=== PATIENT | male | born 1975 | race Caucasian/White ===

== ENCOUNTER 2021-04-17 06:42 | Emergency (ER) | payer BC ==
[2021-04-17] MEDS ORDERED: PANTOPRAZOLE 40 MG/10 ML VIAL IVP STA (07:29)
[2021-04-17] MEDS ORDERED: SODIUM CHLORIDE 0.9% 500 ML 500 ML IV STA (07:29)
[2021-04-17] MEDS ORDERED: ONDANSETRON 4 MG/2 ML VIAL IVP STA (07:29)
[2021-04-17] MEDS ORDERED: SODIUM CHLORIDE 0.9% 1,000 ML IV STA (07:29)
[2021-04-17 07:41] VITALS: PULSE 74
[2021-04-17 08:03] LABS: Appearance,Urine Clear (Clear); Bilirubin,Urine Negative (Negative); Blood,Urine Trace (Negative); Color,Urine Yellow; Glucose,Urine (UA) Negative (Negative); Ketones,Urine 1+ (Negative); Leukocyte Esterase,Urine Negative (Negative); Mucus,Urine Occasional /hpf; Nitrite,Urine Negative (Negative); Protein,Urine 1+ (Negative); RBC,Urine 3 /hpf (0-5); Specific Gravity,Urine 1.021 (1.001-1.035); Urobilinogen,Urine <2.0 mg/dL (<2.0); WBC,Urine 1 /hpf (0-5)
--- NOTE | 2021-04-17 08:11 | ED ---
General Adult HPI - General Chief complaint: Abdominal Pain Stated complaint: Diarrhea Time Seen by Provider: 04/17/21 07:14 Source: patient, RN notes reviewed Mode of arrival: ambulatory - History of Present Illness Initial comments: This a 46-year-old male presents to the emergency Department with chief complaint abdominal pain. Patient states he's had diarrhea for one week. Patient states this worsened to the point where his been having vomiting today. He states typically on his abdominal pain continues to have bowel movement. Patient states the diarrhea has turned bloody. Patient states his lower abdominal pain reports some chills may be possible fever. No chest pain or shortness breath no back pain no prior abdominal surgeries no medications taken currently. - Related Data Previous Rx's Medication Instructions Recorded Ciprofloxacin HCl [Cipro] 500 mg PO Q12HR #14 tablet 04/17/21 Allergies Allergy/AdvReac Type Severity Reaction Status Date / Time No Known Allergies Allergy Verified 04/17/21 07:07 Review of Systems ROS Statement: Those systems with pertinent positive or pertinent negative responses have been documented in the HPI. ROS Other: All systems not noted in ROS Statement are negative. Past Medical History Past Medical History: No Reported History Past Surgical History: No Surgical Hx Reported Past Psychological History: No Psychological Hx Reported Smoking Status: Never smoker Past Alcohol Use History: Occasional Past Drug Use History: None Reported General Exam General appearance: alert, in no apparent distress Head exam: Present: atraumatic, normocephalic, normal inspection Neck exam: Present: normal inspection. Absent: tenderness, meningismus, lymphadenopathy Respiratory exam: Present: normal lung sounds bilaterally. Absent: respiratory distress, wheezes, rales, rhonchi, stridor Cardiovascular Exam: Present: regular rate, normal rhythm, normal heart sounds. Absent: systolic murmur, diastolic murmur, rubs, gallop, clicks GI/Abdominal exam: Present: soft, tenderness, normal bowel sounds. Absent: distended, guarding, rebound, rigid Back exam: Absent: CVA tenderness (R), CVA tenderness (L) Course Vital Signs 04/17/21 04/17/21 04/17/21 07:07 07:31 08:46 Temperature 98.4 F 98.3 F Pulse Rate 80 74 74 Respiratory 19 17 16 Rate Blood Pressure 149/103 179/118 169/111 O2 Sat by Pulse 97 97 98 Oximetry Medical Decision Making - Medical Decision Making 38-year-old male presented for abdominal pain, cramping. Patient's CT shows evidence of colitis. This most likely is infectious as a has been over a week. Patient will be given antibiotics will follow-up with GI, PCP for be given prescription for stool culture. - Lab Data Result diagrams: 04/17/21 07:49 04/17/21 07:49 Lab Results 04/17/21 04/17/21 04/17/21 Range/Units 07:49 07:49 07:49 WBC 13.5 H (3.8-10.6) k/uL RBC 5.62 (4.30-5.90) m/uL Hgb 18.2 H (13.0-17.5) gm/dL Hct 50.3 (39.0-53.0) % MCV 89.6 (80.0-100.0) fL MCH 32.4 (25.0-35.0) pg MCHC 36.1 (31.0-37.0) g/dL RDW 12.8 (11.5-15.5) % Plt Count 170 (150-450) k/uL MPV 8.6 Neutrophils % 85 % Lymphocytes % 6 % Monocytes % 7 % Eosinophils % 0 % Basophils % 1 % Neutrophils # 11.5 H (1.3-7.7) k/uL Lymphocytes # 0.8 L (1.0-4.8) k/uL Monocytes # 0.9 (0-1.0) k/uL Eosinophils # 0.1 (0-0.7) k/uL Basophils # 0.1 (0-0.2) k/uL Sodium 138 (137-145) mmol/L Potassium 4.8 (3.5-5.1) mmol/L Chloride 102 (98-107) mmol/L Carbon Dioxide 24 (22-30) mmol/L Anion Gap 12 mmol/L BUN 9 (9-20) mg/dL Creatinine 0.73 (0.66-1.25) mg/dL Est GFR (CKD-EPI)AfAm >90 (>60 ml/min/1.73 sqM) Est GFR (CKD-EPI)NonAf >90 (>60 ml/min/1.73 sqM) Glucose 130 H (74-99) mg/dL Plasma Lactic Acid Addy (0.7-2.0) mmol/L Calcium 9.8 (8.4-10.2) mg/dL Total Bilirubin 0.9 (0.2-1.3) mg/dL AST 50 (17-59) U/L ALT 64 H (4-49) U/L Alkaline Phosphatase 59 (38-126) U/L Total Protein 8.2 (6.3-8.2) g/dL Albumin 4.8 (3.5-5.0) g/dL Amylase 62 (30-110) U/L Lipase 84 (23-300) U/L Urine Color Yellow Urine Appearance Clear (Clear) Urine pH 6.0 (5.0-8.0) Ur Specific Olga 1.021 (1.001-1.035) Urine Protein 1+ H (Negative) Urine Glucose (UA) Negative (Negative) Urine Ketones 1+ H (Negative) Urine Blood Trace H (Negative) Urine Nitrite Negative (Negative) Urine Bilirubin Negative (Negative) Urine Urobilinogen <2.0 (<2.0) mg/dL Ur Leukocyte Esterase Negative (Negative) Urine RBC 3 (0-5) /hpf Urine WBC 1 (0-5) /hpf Urine Mucus Occasional H (None) /hpf 04/17/21 Range/Units 07:49 WBC (3.8-10.6) k/uL RBC (4.30-5.90) m/uL Hgb (13.0-17.5) gm/dL Hct (39.0-53.0) % MCV (80.0-100.0) fL MCH (25.0-35.0) pg MCHC (31.0-37.0) g/dL RDW (11.5-15.5) % Plt Count (150-450) k/uL MPV Neutrophils % % Lymphocytes % % Monocytes % % Eosinophils % % Basophils % % Neutrophils # (1.3-7.7) k/uL Lymphocytes # (1.0-4.8) k/uL Monocytes # (0-1.0) k/uL Eosinophils # (0-0.7) k/uL Basophils # (0-0.2) k/uL Sodium (137-145) mmol/L Potassium (3.5-5.1) mmol/L Chloride (98-107) mmol/L Carbon Dioxide (22-30) mmol/L Anion Gap mmol/L BUN (9-20) mg/dL Creatinine (0.66-1.25) mg/dL Est GFR (CKD-EPI)AfAm (>60 ml/min/1.73 sqM) Est GFR (CKD-EPI)NonAf (>60 ml/min/1.73 sqM) Glucose (74-99) mg/dL Plasma Lactic Acid Addy 1.6 (0.7-2.0) mmol/L Calcium (8.4-10.2) mg/dL Total Bilirubin (0.2-1.3) mg/dL AST (17-59) U/L ALT (4-49) U/L Alkaline Phosphatase (38-126) U/L Total Protein (6.3-8.2) g/dL Albumin (3.5-5.0) g/dL Amylase (30-110) U/L Lipase (23-300) U/L Urine Color Urine Appearance (Clear) Urine pH (5.0-8.0) Ur Specific Olga (1.001-1.035) Urine Protein (Negative) Urine Glucose (UA) (Negative) Urine Ketones (Negative) Urine Blood (Negative) Urine Nitrite (Negative) Urine Bilirubin (Negative) Urine Urobilinogen (<2.0) mg/dL Ur Leukocyte Esterase (Negative) Urine RBC (0-5) /hpf Urine WBC (0-5) /hpf Urine Mucus (None) /hpf Disposition Clinical Impression: Infectious colitis, Infectious diarrhea Disposition: HOME SELF-CARE Condition: Stable Instructions (If sedation given, give patient instructions): Colitis (ED) Additional Instructions: Please return to the Emergency Department if symptoms worsen or any other concerns. Prescriptions: Ciprofloxacin HCl [Cipro] 500 mg PO Q12HR #14 tablet Is patient prescribed a controlled substance at d/c from ED?: No Referrals: None,Stated [Primary Care Provider] - 1-2 days Dea Mata MD [STAFF PHYSICIAN] - 1-2 days Rajan Ness MD [REFERRING] - 1-2 days Time of Disposition: 09:00
[2021-04-17 08:18] LABS: ALT 64 U/L (4-49); AST 50 U/L (17-59); African American GFR (CKD) >90 (>60 ml/min/1.73 sqM); Albumin 4.8 g/dL (3.5-5.0); Alkaline Phosphatase 59 U/L (38-126); Amylase 62 U/L (30-110); Anion Gap 12 mmol/L; Blood Urea Nitrogen 9 mg/dL (9-20); Calcium 9.8 mg/dL (8.4-10.2); Carbon Dioxide 24 mmol/L (22-30); Chloride 102 mmol/L (98-107); Glucose 130 mg/dL (74-99); Lipase 84 U/L (23-300); Non-African American GFR(CKD) >90 (>60 ml/min/1.73 sqM); Sodium 138 mmol/L (137-145); Total Bilirubin 0.9 mg/dL (0.2-1.3); Total Protein 8.2 g/dL (6.3-8.2)
[2021-04-17 08:19] LABS: Basophils # (A) 0.1 k/uL (0-0.2); Basophils % (A) 1 %; Eosinophils # (A) 0.1 k/uL (0-0.7); Eosinophils % (A) 0 %; HCT 50.3 % (39.0-53.0); HGB 18.2 gm/dL (13.0-17.5); Lymphocytes # (A) 0.8 k/uL (1.0-4.8); Lymphocytes % (A) 6 %; MCH 32.4 pg (25.0-35.0); MCHC 36.1 g/dL (31.0-37.0); MCV 89.6 fL (80.0-100.0); Mean Platelet Volume 8.6; Monocytes # (A) 0.9 k/uL (0-1.0); Monocytes % (A) 7 %; Neutrophils # (A) 11.5 k/uL (1.3-7.7); Neutrophils % (A) 85 %; Platelet Count 170 k/uL (150-450); RBC 5.62 m/uL (4.30-5.90); RDW 12.8 % (11.5-15.5); WBC 13.5 k/uL (3.8-10.6)
[2021-04-17 08:42] LABS: Potassium 4.8 mmol/L (3.5-5.1)
--- NOTE | 2021-04-17 08:47 | CT ---
EXAMINATION TYPE: CT abdomen pelvis w con DATE OF EXAM: 04/17/2021 COMPARISON: None HISTORY: Abdominal pain, Diarrhea CT DLP: 1154 mGycm CONTRAST: CT scan of the abdomen and pelvis is performed without Oral Contrast and with IV Contrast, patient in jected with 100 mL of Isovue 300. FINDINGS: LUNG BASES-: No visible nodule. No infiltrate. LIVER/GB: Small gallstone is noted near the gallbladder neck. No gallbladder wall thickening is appre ciated. No space occupying hepatic lesion. Biliary tree is of normal caliber. PANCREAS: No inflammation. No distinct mass. SPLEEN: No splenic enlargement. No lesion seen. ADRENALS: No nodule. No thickening. KIDNEYS/BLADDER: No hydronephrosis. No nephrolithiasis. No distinct renal mass. Urinary bladder g rossly unremarkable. BOWEL: Normal appendix. Contiguous wall thickening of the colon with mild surrounding stranding exten ding from the distal ascending colon through the rectosigmoid region. Correlate for nonspecific colit is including inflammatory and infectious etiologies. Correlate for ulcerative colitis. No evidence fo r free air perforation. No abscess seen. GENITAL ORGANS: No gross abnormality. LYMPH NODES: No greater than 1cm abdominal or pelvic lymph nodes are appreciated. AORTA: No significant abnormality. OSSEOUS STRUCTURES: No significant abnormality is seen. OTHER: No significant additional abnormality is seen. IMPRESSION: 1. Contiguous wall thickening of the colon with mild surrounding stranding extending from the distal ascending colon through the rectosigmoid region. Correlate for nonspecific colitis including inflamma tory and infectious etiologies. Correlate for ulcerative colitis.
[2021-04-17] MEDS ORDERED: ONDANSETRON 4 MG ODT STARTER PACK 2 TAB BTL PO STA (09:00)
[2021-04-17 09:32] VITALS: BP 164/99; RESP 18; TEMP 99.1
== END 2021-04-17 09:30 | disposition home or self-care (01) ==
LOC: EC 06:42
DX: A09 Infectious gastroenteritis and colitis, unspecified (principal)
CPT/HCPCS: 36415; 80053; 82150; 83605; 83690; 85025; 81001; 74177; 99284; 96374; 96375; 96361; J2405; S0119; C9113; Q9967

== ENCOUNTER 2021-04-17 19:33 | Inpatient (IN) | payer BC ==
[2021-04-17] MEDS ORDERED: METOCLOPRAMIDE 5 MG/ML 2 ML VIAL IVP STA (20:40)
[2021-04-17] MEDS ORDERED: diphenhydrAMINE 50 MG/ML 1 ML VIAL IVP STA (20:40)
[2021-04-17] MEDS ORDERED: SODIUM CHLORIDE 0.9% 1,000 ML IV STA (20:40)
[2021-04-17] MEDS ORDERED: MORPHINE SULFATE 4 MG/ML SYRINGE IV STA (20:40)
--- NOTE | 2021-04-17 20:54 | ED ---
Abdominal Pain HPI - General Chief Complaint: Abdominal Pain Stated Complaint: Abd pain,vomiting Time Seen by Provider: 04/17/21 20:16 Source: patient Mode of arrival: ambulatory Limitations: no limitations - History of Present Illness Initial Comments: 46 year-old male patient presenting to the emergency department [facility] for evaluation of lower abdominal pain, vomiting, GI bleed, and diarrhea. Patient states that he was seen here earlier today for similar symptoms and diagnosed with colitis. He was discharged with Cipro and zofran. Reports persistent vomiting, unable to keep down the medication. States that right before he has a bowel movement he has intense pain to the suprapubic region, this causes vomiting. States that he is only passing blood at this time. States it is dark red to bright red in color. Reports dry heaves, states he had bilious vomiting this morning. Did have fever this weekend. He denies history of similar symptoms. Denies any new medications. Denies any recent travel or sick contacts. Patient denies any recent rash, cough, shortness of breath, chest pain, back pain, numbness, tingling, dizziness, weakness, hematuria, dysuria, urinary urgency, urinary frequency, headache, visual changes, or any other complaints. - Related Data Home Medications Medication Instructions Recorded Confirmed No Known Home Medications 04/17/21 04/17/21 Allergies Allergy/AdvReac Type Severity Reaction Status Date / Time No Known Allergies Allergy Verified 04/17/21 21:35 Review of Systems ROS Statement: Those systems with pertinent positive or pertinent negative responses have been documented in the HPI. ROS Other: All systems not noted in ROS Statement are negative. Past Medical History Past Medical History: No Reported History Additional Past Medical History / Comment(s): infectious colitis History of Any Multi-Drug Resistant Organisms: None Reported Past Surgical History: No Surgical Hx Reported Past Psychological History: No Psychological Hx Reported Smoking Status: Never smoker Past Alcohol Use History: Occasional Past Drug Use History: None Reported General Exam Limitations: no limitations General appearance: alert, in no apparent distress, other (Physical well- developed, well-nourished adult male patient in no acute distress. Vital signs upon presentation are temperature 99.2F, pulse 86, respirations 17, blood pressure 180/125, pulse ox 97% on room air.) Eye exam: Present: normal appearance, PERRL, EOMI. Absent: scleral icterus, conjunctival injection, periorbital swelling ENT exam: Present: normal exam, normal oropharynx, mucous membranes moist Respiratory exam: Present: normal lung sounds bilaterally. Absent: respiratory distress, wheezes, rales, rhonchi, stridor Cardiovascular Exam: Present: regular rate, normal rhythm, normal heart sounds. Absent: systolic murmur, diastolic murmur, rubs, gallop, clicks GI/Abdominal exam: Present: soft, tenderness (Suprapubic), normal bowel sounds. Absent: distended, guarding, rebound, rigid Neurological exam: Present: alert, oriented X3, CN II-XII intact Psychiatric exam: Present: normal affect, normal mood Skin exam: Present: warm, dry, intact, normal color. Absent: rash Course Vital Signs 04/17/21 20:08 Temperature 99.0 F Pulse Rate 86 Respiratory 17 Rate Blood Pressure 180/125 O2 Sat by Pulse 97 Oximetry Medical Decision Making - Medical Decision Making 46-year-old male patient presenting for diarrhea, fever, GI bleed, vomiting, abdominal pain. Second visit today. Labs reviewed and did reveal elevated white blood cell count is 17.3, neutrophils 14.6, sodium 135. Did have CT abd/pelvis earlier today which revealed diffuse colitis. Patient reports bright red blood per rectum. Denies history of similar symptoms. Symptoms not managed with oral medication outpatient. Will admit for GI evaluation. Patient is agreeable. Case discussed with my attending Dr. Jennings. - Lab Data Result diagrams: 04/17/21 20:48 04/17/21 20:48 Lab Results 04/17/21 04/17/21 04/17/21 Range/Units 20:30 20:48 20:48 WBC 17.3 H (3.8-10.6) k/uL RBC 5.45 (4.30-5.90) m/uL Hgb 17.2 (13.0-17.5) gm/dL Hct 48.1 (39.0-53.0) % MCV 88.3 (80.0-100.0) fL MCH 31.6 (25.0-35.0) pg MCHC 35.7 (31.0-37.0) g/dL RDW 12.7 (11.5-15.5) % Plt Count 182 (150-450) k/uL MPV 8.2 Neutrophils % 84 % Lymphocytes % 6 % Monocytes % 6 % Eosinophils % 1 % Basophils % 0 % Neutrophils # 14.6 H (1.3-7.7) k/uL Lymphocytes # 1.1 (1.0-4.8) k/uL Monocytes # 1.1 H (0-1.0) k/uL Eosinophils # 0.1 (0-0.7) k/uL Basophils # 0.0 (0-0.2) k/uL Hyperchromasia Slight Sodium 135 L (137-145) mmol/L Potassium 4.1 (3.5-5.1) mmol/L Chloride 102 (98-107) mmol/L Carbon Dioxide 21 L (22-30) mmol/L Anion Gap 12 mmol/L BUN 9 (9-20) mg/dL Creatinine 0.71 (0.66-1.25) mg/dL Est GFR (CKD-EPI)AfAm >90 (>60 ml/min/1.73 sqM) Est GFR (CKD-EPI)NonAf >90 (>60 ml/min/1.73 sqM) Glucose 128 H (74-99) mg/dL Calcium 9.1 (8.4-10.2) mg/dL Magnesium 2.0 (1.6-2.3) mg/dL Total Bilirubin 0.7 (0.2-1.3) mg/dL AST 27 (17-59) U/L ALT 47 (4-49) U/L Alkaline Phosphatase 51 (38-126) U/L Total Protein 7.2 (6.3-8.2) g/dL Albumin 4.3 (3.5-5.0) g/dL Lipase 58 (23-300) U/L Disposition Clinical Impression: Colitis, GI bleed Disposition: ADMITTED IP TO THIS [facility] Condition: Serious Referrals: None,Stated [Primary Care Provider] - 1-2 days Decision to Admit Reason: Admit from EC Decision Date: 04/17/21 Decision Time: 21:31
[2021-04-17 21:00] LABS: Basophils % (A) 0 %; Eosinophils # (A) 0.1 k/uL (0-0.7); Eosinophils % (A) 1 %; HCT 48.1 % (39.0-53.0); HGB 17.2 gm/dL (13.0-17.5); Hyperchromasia Slight; Lymphocytes # (A) 1.1 k/uL (1.0-4.8); Lymphocytes % (A) 6 %; MCH 31.6 pg (25.0-35.0); MCHC 35.7 g/dL (31.0-37.0); MCV 88.3 fL (80.0-100.0); Mean Platelet Volume 8.2; Monocytes # (A) 1.1 k/uL (0-1.0); Monocytes % (A) 6 %; Neutrophils # (A) 14.6 k/uL (1.3-7.7); Neutrophils % (A) 84 %; Platelet Count 182 k/uL (150-450); RBC 5.45 m/uL (4.30-5.90); RDW 12.7 % (11.5-15.5); WBC 17.3 k/uL (3.8-10.6)
[2021-04-17 21:08] LABS: ALT 47 U/L (4-49); AST 27 U/L (17-59); African American GFR (CKD) >90 (>60 ml/min/1.73 sqM); Albumin 4.3 g/dL (3.5-5.0); Alkaline Phosphatase 51 U/L (38-126); Anion Gap 12 mmol/L; Blood Urea Nitrogen 9 mg/dL (9-20); Calcium 9.1 mg/dL (8.4-10.2); Carbon Dioxide 21 mmol/L (22-30); Chloride 102 mmol/L (98-107); Glucose 128 mg/dL (74-99); Lipase 58 U/L (23-300); Non-African American GFR(CKD) >90 (>60 ml/min/1.73 sqM); Potassium 4.1 mmol/L (3.5-5.1); Sodium 135 mmol/L (137-145); Total Bilirubin 0.7 mg/dL (0.2-1.3); Total Protein 7.2 g/dL (6.3-8.2)
[2021-04-17] MEDS ORDERED: NALOXONE 0.4 MG/ML 1 ML VIAL IV PRN (22:06)
[2021-04-17] MEDS ORDERED: ONDANSETRON 4 MG/2 ML VIAL IVP PRN (22:06)
[2021-04-17] MEDS ORDERED: TRIMETHOBENZAMIDE 100 MG/ML 2 ML VIAL IM PRN (22:08)
[2021-04-17] MEDS ORDERED: metroNIDAZOLE-NS PMX 500 MG in SALINE 1 100ML.BAG IVPB STA (22:08)
[2021-04-17] MEDS ORDERED: LEVOFLOXACIN 750MG-D5W PMX 750 MG in DEXTROSE/WATER 1 150ML.BAG IVPB STA (22:08)
[2021-04-17] MEDS ORDERED: LEVOFLOXACIN 750MG-D5W PMX 750 MG in DEXTROSE/WATER 1 150ML.BAG IVPB SCH (22:15)
[2021-04-17] MEDS ORDERED: hydrALAZINE HCL 25 MG TAB PO STA (23:08)
[2021-04-17] MEDS: SODIUM CHLORIDE 0.9% 1,000 ML IV SCH (23:14)
--- NOTE | 2021-04-18 00:50 | P.HPIM ---
History of Present Illness H&P Date: 04/17/21 The patient is a 46-year-old male with no known PMH who presented to the emergency room with complaints of abdominal pain, nausea, diarrhea. The patient reports that he was in his usual state of health until nearly a week ago when he developed abdominal pain. Patient reports that the pain was diffuse, 5 out of 10. At maximal intensity, nonradiating, worsened by food, with no clear alleviating features. The pain was associated with diarrhea, loose, without mucus. Patient reports subjective fevers at home 2 days ago. He reports however that earlier today, he noticed that the bowel movements also had mucousy blood in it, at which time he decided to come to the emergency room. He was seen at around 8 AM at [place] emergency room, and was sent home with ciprofloxacin and Zofran orally after a CT abdomen and pelvis with contrast that revealed nonspecific colitis. The patient notes that he attempted to take those medications but developed nausea and subsequently 1-2 episodes of vomiting. He returned to the emergency room in the evening. Vital signs upon presentation were BP 180/125, pulse 86, temperature 99.0F, and SpO2 97% on room air. Laboratory evaluation was remarkable for leukocytosis of 17.3. Review of systems: Pertinent positives and negatives as discussed in HPI, a complete review of systems was performed and all other systems are negative. Physical examination: General: non toxic, no distress, appears at stated age, overweight Derm: no unusual rashes/lesions no unusual ecchymoses, warm, dry Head: atraumatic, normocephalic, symmetric Eyes: EOMI, no lid lag, anicteric sclera, pupils equal round reactive to light ENT: Nose and ears atraumatic, no thrush, no pharyngeal erythema Neck: No thyromegaly, no cervical lymphadenopathy, trachea midline, supple Mouth: no lip lesion, mucus membranes moist Cardiovascular: S1S2 reg, no murmur, positive posterior tibial pulse bilateral, no edema, capillary refill less than 2 seconds Lungs: CTA bilateral, no rhonchi, no rales , no accessory muscle use Abdominal: soft, mild diffuse tenderness to palpation, no guarding, no appreciable organomegaly, normal bowel sounds Ext: no gross muscle atrophy, muscle strength 5 out of 5 in all 4 extremities grossly, no contractures, Neuro: CN II-XI grossly intact, light touch intact all 4 extremities, finger to nose within normal limits, Psych: Alert, oriented, appropriate affect Assessment/plan Colitis -Continue with Levaquin and Flagyl -IV fluids -Clear liquid diet for now -Pain control -GI consulted -Follow up stool cultures -Anti-emetics DVT prophylaxis -Heparin subq The patient is admitted with an anticipated less than 2 midnight stay for evaluation of colitis CODE STATUS: Full Code Discussed with: Patient, girlfriend Anticipated discharge date: in am Anticipated discharge place: Home Past Medical History Past Medical History: No Reported History Additional Past Medical History / Comment(s): infectious colitis History of Any Multi-Drug Resistant Organisms: None Reported Past Surgical History: No Surgical Hx Reported Past Psychological History: No Psychological Hx Reported Smoking Status: Never smoker Past Alcohol Use History: Occasional Past Drug Use History: None Reported - Past Family History Father Family Medical History: Coronary Artery Disease (CAD) Medications and Allergies Home Medications Medication Instructions Recorded Confirmed Type No Known Home Medications 04/17/21 04/17/21 History Allergies Allergy/AdvReac Type Severity Reaction Status Date / Time No Known Allergies Allergy Verified 04/17/21 21:35 Physical Exam Vitals: Vital Signs Temp Pulse Pulse Resp BP BP Pulse Ox 04/18/21 00:24 98.3 F 85 20 151/104 98 04/17/21 23:48 83 16 169/106 99 04/17/21 23:05 166/107 04/17/21 22:47 98.3 F 83 18 184/112 98 04/17/21 20:08 99.0 F 86 17 180/125 97 Intake and Output 04/17/21 04/17/21 04/18/21 14:59 22:59 06:59 Other: Voiding Method Toilet Weight 97.522 kg Results CBC & Chem 7: 04/17/21 20:48 04/17/21 20:48 Labs: Abnormal Lab Results - Last 24 Hours (Table) 04/17/21 04/17/21 Range/Units 20:48 20:48 WBC 17.3 H (3.8-10.6) k/uL Neutrophils # 14.6 H (1.3-7.7) k/uL Monocytes # 1.1 H (0-1.0) k/uL Sodium 135 L (137-145) mmol/L Carbon Dioxide 21 L (22-30) mmol/L Glucose 128 H (74-99) mg/dL
[2021-04-18] MEDS: MORPHINE SULFATE 4 MG/ML SYRINGE IV PRN ×6 (02:26→22:16)
[2021-04-18] MEDS: metroNIDAZOLE-NS PMX 500 MG in SALINE 1 100ML.BAG IVPB SCH ×3 (05:30→17:03)
[2021-04-18 06:10] LABS: Basophils % (A) 0 %; Eosinophils % (A) 0 %; HCT 46.4 % (39.0-53.0); HGB 16.4 gm/dL (13.0-17.5); Lymphocytes # (A) 1.3 k/uL (1.0-4.8); Lymphocytes % (A) 8 %; MCH 31.7 pg (25.0-35.0); MCHC 35.4 g/dL (31.0-37.0); MCV 89.6 fL (80.0-100.0); Mean Platelet Volume 8.4; Monocytes % (A) 7 %; Neutrophils # (A) 12.5 k/uL (1.3-7.7); Neutrophils % (A) 82 %; Platelet Count 175 k/uL (150-450); RBC 5.18 m/uL (4.30-5.90); RDW 12.9 % (11.5-15.5); WBC 15.3 k/uL (3.8-10.6)
[2021-04-18] MEDS: HEPARIN SODIUM,PORCINE/PF 5,000 UNIT/0.5 ML SYRINGE SQ SCH ×2 (07:54→14:20)
[2021-04-18] MEDS: amLODIPine 5 MG TAB PO SCH (09:07)
[2021-04-18] MEDS: SODIUM CHLORIDE 0.9% 1,000 ML IV SCH (10:30)
[2021-04-18] MEDS ORDERED: PROCHLORPERAZINE SUPPOSITORY 25 MG SUPP RECTAL PRN (11:00)
[2021-04-18 12:10] LABS: HCT 48.2 % (39.0-53.0); HGB 16.9 gm/dL (13.0-17.5); MCH 31.7 pg (25.0-35.0); MCHC 35.1 g/dL (31.0-37.0); MCV 90.4 fL (80.0-100.0); Mean Platelet Volume 8.9; Platelet Count 180 k/uL (150-450); RBC 5.34 m/uL (4.30-5.90); RDW 12.9 % (11.5-15.5); WBC 18.2 k/uL (3.8-10.6)
[2021-04-18] MEDS: PANTOPRAZOLE 40 MG/10 ML VIAL IVP SCH ×2 (12:16→22:16)
--- NOTE | 2021-04-18 15:14 | P.CONS ---
History of Present Illness - Reason for Consult Consult date: 04/18/21 Abdominal pain, GI bleed Requesting physician: Laverne Obando - Chief Complaint Diarrhea, abdominal pain, rectal bleeding - History of Present Illness This is a 46-year-old white male who presented to the emergency department yesterday morning with complaints of abdominal pain, diarrhea for one week's duration, associated with nausea and vomiting. Patient also states he started having rectal bleeding 2-3 days ago. The patient was seen in the emergency department and underwent a CT of the abdomen and pelvis that showed continued chest wall thickening of the colon with mild surrounding stranding extending from the distal ascending colon through the rectal sigmoid region. Correlate for nonspecific colitis including inflammatory and infectious etiologies. Correlate for ulcerative colitis. The patient was sent home with [facility], however he was unable to keep any medications or any fluids down due to vomiting and continued diarrhea so he returned back to the emergency department. On admission he has initial WBC was 17.3, with a temperature of 99.0. Today's labs WBC 15.3, hemoglobin 16, hematocrit 46, platelet count 175, total bilirubin 0.7, alkaline phosphatase 51, AST 27, ALT 47, lipase 58. Patient had a C. difficile toxin which was negative. Stool culture collected and pending. The patient states the diarrhea started a week ago from today and he was having at least 3 episodes of loose bowel movement every hour. States he has abdominal pain which is centralized in his lower abdomen and is associated with nausea and vomiting. He states in the beginning he just had loose stools, however starting Thursday he started noticing blood in his stool as well. Which he states is harry blood. He denies any previous history of similar symptoms, no history of Crohn's or ulcerative colitis disease for himself or his family. He's had no previous EGD or colonoscopy. He does state he frequently takes Tylenol and ibuprofen almost daily for back pain. He does state symptoms have improved about 25% from yesterday. Denies any further vomiting. States he has had little appetite, did have fever and chills at home however did not take his temperature. He denies any recent traveling and no recent antibiotic use. Review of Systems REVIEW OF SYSTEMS: CARDIOPULMONARY: No chest pain or shortness of breath. Gastrointestinal: Sharp abdominal pain, mostly periumbilical. Nausea with vomiting. No hematemesis, coffee-ground emesis. Bloody diarrhea, up to three times hourly. GENITOURINARY: No dysuria or hematuria. MUSCULOSKELETAL: Reports normal range of motion., Joint pain. SKIN: No rashes. No jaundice. ENDOCRINE: No chills, fevers. No excessive weight gain or loss. No polydipsia or polyuria. PSYCHIATRIC: Unremarkable. NEUROLOGY: No change in mental status. Denies dizziness, headache. ENT: Vision unremarkable. CONSTITUTIONAL: No recent weight loss. No fever, chills, night sweats. Past Medical History Past Medical History: No Reported History Additional Past Medical History / Comment(s): infectious colitis History of Any Multi-Drug Resistant Organisms: None Reported Past Surgical History: No Surgical Hx Reported Past Anesthesia/Blood Transfusion Reactions: No Reported Reaction Past Psychological History: No Psychological Hx Reported Smoking Status: Never smoker Past Alcohol Use History: Occasional Past Drug Use History: None Reported - Past Family History Father Family Medical History: Coronary Artery Disease (CAD) Medications and Allergies Home Medications Medication Instructions Recorded Confirmed Type No Known Home Medications 04/17/21 04/17/21 History Allergies Allergy/AdvReac Type Severity Reaction Status Date / Time No Known Allergies Allergy Verified 04/17/21 21:35 Physical Exam Vitals: Vital Signs Temp Pulse Pulse Resp BP BP Pulse Ox 04/18/21 08:29 18 04/18/21 08:00 20 04/18/21 04:50 98.9 F 84 20 168/102 96 04/18/21 00:24 98.3 F 85 20 151/104 98 04/17/21 23:48 83 16 169/106 99 04/17/21 23:05 166/107 04/17/21 22:47 98.3 F 83 18 184/112 98 04/17/21 20:08 99.0 F 86 17 180/125 97 Intake and Output 04/17/21 04/18/21 04/18/21 22:59 06:59 14:59 Intake Total 600 Balance 600 Intake: Intake, IV Titration 600 Amount Sodium Chloride 0.9% 1, 600 000 ml @ 75 mls/hr IV . [id number] [facility] Rx#:[id number] Other: Voiding Method Toilet Toilet # Voids 1 # Bowel Movements 1 Weight 97.522 kg 97.522 kg General appearance: The patient is alert, oriented, appears in no acute distress. HET: Head is normocephalic and atraumatic. Conjunctiva pink. Sclera anicteric. Neck: Supple without lymphadenopathy. Trachea midline. Heart: S1 S2. Regular rate and rhythm. Lungs: Clear to auscultation. Abdomen: Soft, lower abdominal tenderness,, nondistended with bowel sounds. No guarding or rigidity. Skin: No rashes. No jaundice. Extremities: Normal skin color and turgor. No pedal edema. Neurological: No focal deficits. Alert and oriented 3.. Results CBC & Chem 7: 04/18/21 11:29 04/17/21 20:48 Labs: Abnormal Lab Results - Last 24 Hours (Table) 04/17/21 04/17/21 04/18/21 Range/Units 20:48 20:48 05:34 WBC 17.3 H 15.3 H (3.8-10.6) k/uL Neutrophils # 14.6 H 12.5 H (1.3-7.7) k/uL Monocytes # 1.1 H (0-1.0) k/uL Sodium 135 L (137-145) mmol/L Carbon Dioxide 21 L (22-30) mmol/L Glucose 128 H (74-99) mg/dL Microbiology - Last 24 Hours (Table) 04/17/21 20:48 Stool Culture - Preliminary Stool CT scan - abdomen: report reviewed (Continue just wall thickening of the colon with mild surrounding stranding extending from the distal descending colon through the rectosimoid region. Correlate for nonspecific colitis including inflammatory and infectious etiologies. Correlate for ulcerative colitis.) Assessment and Plan (1) Colitis Narrative/Plan: 46-year-old male who presented to the emergency department early yesterday morning with complaints of abdominal pain, diarrhea for one week's duration now Blood, and nausea and vomiting. He underwent a CT of the abdomen that showed continued just wall thickening of the colon with mild surrounding stranding extending from the distal descending colon through the rectosigmoid region. Correlate for nonspecific colitis including inflammatory and infectious etiologies. Correlate for ulcerative colitis. He was given oral Flagyl and sent home. However he states he was still having severe abdominal pain, diarrhea, and vomiting and was unable to keep his pills down or taken any thing oral, so he returned to the emergency department. On presentation he had evidence of leukocytosis, hemoglobin was stable at 16.9. He reports having multiple loose bowel movements up to 3 times an hour that began last . He states on Thursday he started having blood mixed with his stool and blood per rectum. He has lower abdominal pain that is associated with nausea and vomiting. No previous history of similar symptoms, no previous history or family history of Crohn's disease or ulcerative colitis. Likely we are dealing with an infectious etiology as patient has had a low-grade fever with a max temp 99.3 and leukocytosis however other possible etiologies need to be considered such as inflammatory. Current Visit: Yes Status: Acute Code(s): K52.9 - NONINFECTIVE GASTROENTERITIS AND COLITIS, UNSPECIFIED SNOMED Code(s): 64900767 (2) Diarrhea Current Visit: Yes Status: Acute Code(s): R19.7 - DIARRHEA, UNSPECIFIED SNOMED Code(s): 01347588 (3) Abdominal pain Current Visit: Yes Status: Acute Code(s): R10.9 - UNSPECIFIED ABDOMINAL PAIN SNOMED Code(s): 32102573 Plan: 1. Continue symptomatic and supportive care 2. Continue pain medications as needed 3. Continue IV Levaquin and Flagyl 4. CRP and sed rate ordered 5. Clear liquid diet as tolerated 6. CT of abdomen and pelvis reviewed 7. C. diff toxin ordered and negative 8. Stool cultures pending 9. No plans on endoscopic evaluation at this time unless symptoms do not improve. Otherwise will likely plan an outpatient colonoscopy in 6-8 weeks. Thank you for this consultation, we will continue to follow. Dr. Sukumar Mata I agree with the dictator's note, documented as a scribe by Chani Oconnor.
--- NOTE | 2021-04-18 16:41 | P.PN ---
Subjective Progress Note Date: 04/18/21 (delayed charting seen at 0930) Principal diagnosis: chest pain Patient is a 46-year-old male with known past medical history who presented to the emergency room with abdominal pain, nausea, and diarrhea. He had initially presented on the morning of 04/[address] abdomen and pelvis which showed nonspecific colitis. He was discharged home on antibiotics and presented again several hours later due to intractable nausea vomiting and diarrhea with development of bright red blood per rectum. On admission his white blood cell count was 17.3 and he was found to be fairly hypertensive. He was started on Levaquin, Flagyl, and IV fluids. He is admitted for further monitoring. GI was consulted. Patient seen and examined at bedside. He reports continued crampy abdominal pain with bloody diarrhea. He states that he has been unable to tolerate any oral intake and has been having popsicles but has been unable to keep them down. He describes having to run to the bathroom when he took several bites of a Popsicle. It appears he is having some obstipation. General: Ill appearing, no distress, appears at stated age Derm: warm, dry Head: atraumatic, normocephalic, symmetric Eyes: EOMI, no lid lag, anicteric sclera Mouth: no lip lesion, mucus membranes moist Cardiovascular: S1S2 reg, no murmur, positive posterior tibial pulse bilateral, Lungs: Decreased bs bilateral, no rhonchi, no rales , no accessory muscle use Abdominal: soft, tender to palpation diffusely, no guarding, no appreciable organomegaly Ext: no gross muscle atrophy, no edema, no contractures Neuro: CN II-XI grossly intact, no focal neuro deficits Psych: Alert, oriented, appropriate affect Dysentery secondary to Colitis with inability to tolerate oral intake -Await GI recommendations -Levaquin, Flagyl -IV fluids -Clear liquid diet -Continue with PPI -Morphine -compazine Hypertension - Appears to be essential as he has not followed with primary care and has had multiple elevated blood pressures -Start Norvasc -Follow blood pressures Patient has failed observational stay with continued inability to tolerate oral intake, continued elevated white blood cell count with some tachycardia indicative of developing sepsis, and intractable abdominal pain. He'll be transitioned to admission status. He is unsafe for discharge due to worsening tachycardia with leukocytosis and inability to tolerate oral intake. Objective - Vital Signs Vital signs: Vital Signs Temp 99.3 F 04/18/21 12:35 Pulse 98 04/18/21 12:35 Resp 17 04/18/21 12:35 BP 161/100 04/18/21 12:35 Pulse Ox 95 04/18/21 12:35 Intake & Output 04/17/21 04/18/21 04/18/21 18:59 06:59 18:59 Intake Total 600 Balance 600 Weight 97.522 kg Intake: Intake, IV Titration 600 Amount Sodium Chloride 0.9% 1, 600 000 ml @ 75 mls/hr IV . [id number] [facility] Rx#:[id number] Other: Voiding Method Toilet Toilet # Voids 1 # Bowel Movements 1 - Labs CBC & Chem 7: 04/18/21 11:29 04/17/21 20:48 Labs: Abnormal Lab Results - Last 24 Hours (Table) 04/17/21 04/17/21 04/18/21 Range/Units 20:48 20:48 05:34 WBC 17.3 H 15.3 H (3.8-10.6) k/uL Neutrophils # 14.6 H 12.5 H (1.3-7.7) k/uL Monocytes # 1.1 H (0-1.0) k/uL Sodium 135 L (137-145) mmol/L Carbon Dioxide 21 L (22-30) mmol/L Glucose 128 H (74-99) mg/dL C-Reactive Protein (<1.0) mg/dL 04/18/21 04/18/21 Range/Units 11:29 11:29 WBC 18.2 H (3.8-10.6) k/uL Neutrophils # (1.3-7.7) k/uL Monocytes # (0-1.0) k/uL Sodium (137-145) mmol/L Carbon Dioxide (22-30) mmol/L Glucose (74-99) mg/dL C-Reactive Protein 8.5 H (<1.0) mg/dL Microbiology - Last 24 Hours (Table) 04/17/21 20:48 Stool Culture - Preliminary Stool
[2021-04-18 19:54] LABS: African American GFR (CKD) 116.6 (60.0-200.0); Anion Gap 14.9 mmol/L (4.00-12.00); BUN/Creat Ratio 11.11 Ratio (12.00-20.00); Calcium 8.4 mg/dL (8.7-10.3); Carbon Dioxide 19.1 mmol/L (21.6-31.8); Non-African American GFR(CKD) 100.6 (60.0-200.0)
[2021-04-18 20:59] LABS: HCT 46.8 % (39.0-53.0); HGB 16.6 gm/dL (13.0-17.5); MCH 31.7 pg (25.0-35.0); MCHC 35.5 g/dL (31.0-37.0); MCV 89.4 fL (80.0-100.0); Mean Platelet Volume 8.4; Platelet Count 164 k/uL (150-450); RBC 5.24 m/uL (4.30-5.90); RDW 12.9 % (11.5-15.5); WBC 18.9 k/uL (3.8-10.6)
[2021-04-18] MEDS: LEVOFLOXACIN 750MG-D5W PMX 750 MG in DEXTROSE/WATER 1 150ML.BAG IVPB SCH (22:16)
[2021-04-19] MEDS: metroNIDAZOLE-NS PMX 500 MG in SALINE 1 100ML.BAG IVPB SCH ×5 (00:32→23:54)
[2021-04-19] MEDS: HEPARIN SODIUM,PORCINE/PF 5,000 UNIT/0.5 ML SYRINGE SQ SCH ×4 (00:33→23:54)
[2021-04-19] MEDS: SODIUM CHLORIDE 0.9% 1,000 ML IV SCH ×3 (03:39→21:56)
[2021-04-19] MEDS: MORPHINE SULFATE 4 MG/ML SYRINGE IV PRN ×4 (05:05→23:53)
[2021-04-19 06:25] LABS: HCT 43.7 % (39.0-53.0); HGB 15.3 gm/dL (13.0-17.5); MCH 31.6 pg (25.0-35.0); MCHC 35.1 g/dL (31.0-37.0); MCV 90.1 fL (80.0-100.0); Mean Platelet Volume 8.1; Platelet Count 171 k/uL (150-450); RBC 4.85 m/uL (4.30-5.90); RDW 12.9 % (11.5-15.5); WBC 16.3 k/uL (3.8-10.6)
[2021-04-19] MEDS: PANTOPRAZOLE 40 MG/10 ML VIAL IVP SCH ×2 (08:27→21:55)
[2021-04-19] MEDS: amLODIPine 5 MG TAB PO SCH (08:27)
[2021-04-19 08:35] LABS: African American GFR (CKD) >90 (>60 ml/min/1.73 sqM); Anion Gap 8 mmol/L; Blood Urea Nitrogen 10 mg/dL (9-20); Calcium 8.2 mg/dL (8.4-10.2); Carbon Dioxide 23 mmol/L (22-30); Chloride 102 mmol/L (98-107); Glucose 114 mg/dL (74-99); Non-African American GFR(CKD) >90 (>60 ml/min/1.73 sqM); Potassium 3.9 mmol/L (3.5-5.1); Sodium 133 mmol/L (137-145)
[2021-04-19] MEDS ORDERED: PROCHLORPERAZINE 10 MG TAB PO PRN (10:05)
--- NOTE | 2021-04-19 13:48 | P.PN ---
Subjective Progress Note Date: 04/19/21 Principal diagnosis: Abdominal pain, diarrhea, colitis 46-year-old male who presented to the emergency department 2 days ago with abdominal pain and diarrhea. Patient initially was seen in the emergency department on April 17 and had a computed tomography scan of the abdomen showing colitis. He was given oral antibiotics and sent home. Later that day he was having continued rectal bleeding, diarrhea, and abdominal pain so presented back to the emergency department. He was subsequently admitted and started on Levaquin and Flagyl. He initially was having episodes of 3 bloody diarrhea an hour with severe abdominal pain and he states he also had fevers and chills. His C. difficile toxin was negative, stool cultures are pending. He states he is feeling a little better today. He is having 1 loose bowel movement a day, states still sees blood in it but not as much. Still has abdominal pain but improving. He is having some nausea but no vomiting. His been afebrile. Objective - Vital Signs Vital signs: Vital Signs Temp 98 F 04/19/21 05:00 Pulse 94 04/19/21 05:00 Resp 16 04/19/21 05:00 BP 146/93 04/19/21 05:00 Pulse Ox 95 04/19/21 05:00 Intake & Output 04/18/21 04/19/21 04/19/21 18:59 06:59 18:59 Intake Total 680 Balance 680 Intake: Oral 680 Other: Voiding Method Toilet Toilet Toilet # Voids 3 2 - Exam General appearance: The patient is alert, oriented, appears in no acute distress. HET: Head is normocephalic and atraumatic. Conjunctiva pink. Sclera anicteric. Neck: Supple without lymphadenopathy. Abdomen: Soft right sided abdominal tenderness, nondistended with bowel sounds. No guarding or rigidity. Extremities: Normal skin color and turgor. No pedal edema Skin: No rashes, no jaundice Neurological: No focal deficits. Alert and oriented 3. - Labs CBC & Chem 7: 04/19/21 05:57 04/19/21 05:57 Labs: Abnormal Lab Results - Last 24 Hours (Table) 04/17/21 04/18/21 04/18/21 Range/Units 20:48 05:34 11:29 WBC 18.2 H (3.8-10.6) k/uL Sodium (137-145) mmol/L Carbon Dioxide 19.1 L (21.6-31.8) mmol/L Anion Gap 14.90 H (4.00-12.00) mmol/L Creatinine (0.66-1.25) mg/dL BUN/Creatinine Ratio 11.11 L (12.00-20.00) Ratio Glucose 163 H (70-110) mg/dL Calcium 8.4 L (8.7-10.3) mg/dL C-Reactive Protein (<1.0) mg/dL Stool Lactoferrin POSITIVE A (NEGATIVE) 04/18/21 04/18/21 04/19/21 Range/Units 11:29 20:49 05:57 WBC 18.9 H 16.3 H (3.8-10.6) k/uL Sodium (137-145) mmol/L Carbon Dioxide (21.6-31.8) mmol/L Anion Gap (4.00-12.00) mmol/L Creatinine (0.66-1.25) mg/dL BUN/Creatinine Ratio (12.00-20.00) Ratio Glucose (70-110) mg/dL Calcium (8.7-10.3) mg/dL C-Reactive Protein 8.5 H (<1.0) mg/dL Stool Lactoferrin (NEGATIVE) 04/19/21 Range/Units 05:57 WBC (3.8-10.6) k/uL Sodium 133 L (137-145) mmol/L Carbon Dioxide (21.6-31.8) mmol/L Anion Gap (4.00-12.00) mmol/L Creatinine 0.65 L (0.66-1.25) mg/dL BUN/Creatinine Ratio (12.00-20.00) Ratio Glucose 114 H (70-110) mg/dL Calcium 8.2 L (8.7-10.3) mg/dL C-Reactive Protein (<1.0) mg/dL Stool Lactoferrin (NEGATIVE) Microbiology - Last 24 Hours (Table) 04/17/21 20:48 Stool Culture - Preliminary Stool Assessment and Plan (1) Colitis Narrative/Plan: 46-year-old male who presented to the emergency department early yesterday morning with complaints of abdominal pain, diarrhea for one week's duration now Blood, and nausea and vomiting. He underwent a CT of the abdomen that showed continued just wall thickening of the colon with mild surrounding stranding extending from the distal descending colon through the rectosigmoid region. Correlate for nonspecific colitis including inflammatory and infectious etiologies. Correlate for ulcerative colitis. He was given oral Flagyl and sent home. However he states he was still having severe abdominal pain, diarrhea, and vomiting and was unable to keep his pills down or taken any thing oral, so he returned to the emergency department. On presentation he had evidence of leukocytosis, hemoglobin was stable at 16.9. He reports having multiple loose bowel movements up to 3 times an hour that began last . He states on Thursday he started having blood mixed with his stool and blood per rectum. He has lower abdominal pain that is associated with nausea and vomiting. No previous history of similar symptoms, no previous history or family history of Crohn's disease or ulcerative colitis. Likely we are dealing with an infectious etiology as patient has had a low-grade fever with a max temp 99.3 and leukocytosis however other possible etiologies need to be considered such as inflammatory. Current Visit: Yes Status: Acute Code(s): K52.9 - NONINFECTIVE GASTROENTERITIS AND COLITIS, UNSPECIFIED SNOMED Code(s): 69763673 (2) Diarrhea Current Visit: Yes Status: Acute Code(s): R19.7 - DIARRHEA, UNSPECIFIED SNOMED Code(s): 98413976 (3) Abdominal pain Current Visit: Yes Status: Acute Code(s): R10.9 - UNSPECIFIED ABDOMINAL PAIN SNOMED Code(s): 71958522 Plan: 1. Continue symptomatic and supportive care 2. Continue pain medications as needed 3. Continue IV Levaquin and Flagyl 4. CRP and sed rate ordered 5. May advance to full liquid diet as tolerated 6. CT of abdomen and pelvis reviewed 7. C. diff toxin ordered and negative 8. Stool cultures pending 9. No plans on endoscopic evaluation at this time unless symptoms do not improve. Otherwise will likely plan an outpatient colonoscopy in 6-8 weeks. Thank you for this consultation, we will continue to follow. Dr. Sukumar Mata I agree with the dictator's note, documented as a scribe by Chani Oconnor.
--- NOTE | 2021-04-19 16:49 | P.PN ---
Subjective Progress Note Date: 04/19/21 (delayed charting seen at 0845) Principal diagnosis: chest pain Patient is a 46-year-old male with known past medical history who presented to the emergency room with abdominal pain, nausea, and diarrhea. He had initially presented on the morning of 04/[address] abdomen and pelvis which showed nonspecific colitis. He was discharged home on antibiotics and presented again several hours later due to intractable nausea vomiting and diarrhea with development of bright red blood per rectum. On admission his white blood cell count was 17.3 and he was found to be fairly hypertensive. He was started on Levaquin, Flagyl, and IV fluids. He is admitted for further monitoring. GI was consulted who felt this was likely infectious and recommended continuing antibiotics, colonoscopy in 6-8 weeks. C. diff was negative. Hemoglobin remained stable after admission had continued nausea and diarrhea. Patient seen and examined at bedside. He reports less diarrhea than yesterday, less need for pain medications, and has been able to have water and eat a Popsicle. He then becomes upset when I discussed that he will likely be discharged tomorrow. General: Ill appearing, no distress, appears at stated age Derm: warm, dry Head: atraumatic, normocephalic, symmetric Eyes: EOMI, no lid lag, anicteric sclera Mouth: no lip lesion, mucus membranes moist Cardiovascular: S1S2 reg, no murmur, positive posterior tibial pulse bilateral, Lungs: Decreased bs bilateral, no rhonchi, no rales , no accessory muscle use Abdominal: soft, tender to palpation diffusely, no guarding, no appreciable organomegaly Ext: no gross muscle atrophy, no edema, no contractures Neuro: CN II-XI grossly intact, no focal neuro deficits Psych: Alert, oriented, appropriate affect Dysentery secondary to Colitis with inability to tolerate oral intake -GI recommendations appreciated: Outpatient colonoscopy in 6-8 weeks, ESR 3 -Levaquin, Flagyl -IV fluids -Advance to full liquid diet -Continue with PPI -Morphine -compazine Hyponatremia -Secondary to insensible water loss from diarrhea -Continue with IV fluids -Repeat in a.m. Hypertension - Appears to be essential as he has not followed with primary care and has had multiple elevated blood pressures -Norvasc -Follow blood pressures Patient has failed observational stay with continued inability to tolerate oral intake, continued elevated white blood cell count with some tachycardia indicative of developing sepsis, and intractable abdominal pain. He'll be transitioned to admission status. He is unsafe for discharge due to worsening tachycardia with leukocytosis and inability to tolerate oral intake. Objective - Vital Signs Vital signs: Vital Signs Temp 99.3 F 04/19/21 13:00 Pulse 106 H 04/19/21 13:00 Resp 15 04/19/21 13:00 BP 162/95 04/19/21 13:00 Pulse Ox 95 04/19/21 13:00 Intake & Output 04/18/21 04/19/21 04/19/21 18:59 06:59 18:59 Intake Total 680 Balance 680 Intake: Oral 680 Other: Voiding Method Toilet Toilet Toilet # Voids 3 2 - Labs CBC & Chem 7: 04/19/21 05:57 04/19/21 05:57 Labs: Abnormal Lab Results - Last 24 Hours (Table) 04/17/21 04/18/21 04/18/21 Range/Units 20:48 05:34 20:49 WBC 18.9 H (3.8-10.6) k/uL Sodium (137-145) mmol/L Carbon Dioxide 19.1 L (21.6-31.8) mmol/L Anion Gap 14.90 H (4.00-12.00) mmol/L Creatinine (0.66-1.25) mg/dL BUN/Creatinine Ratio 11.11 L (12.00-20.00) Ratio Glucose 163 H (70-110) mg/dL Calcium 8.4 L (8.7-10.3) mg/dL Stool Lactoferrin POSITIVE A (NEGATIVE) 04/19/21 04/19/21 Range/Units 05:57 05:57 WBC 16.3 H (3.8-10.6) k/uL Sodium 133 L (137-145) mmol/L Carbon Dioxide (21.6-31.8) mmol/L Anion Gap (4.00-12.00) mmol/L Creatinine 0.65 L (0.66-1.25) mg/dL BUN/Creatinine Ratio (12.00-20.00) Ratio Glucose 114 H (70-110) mg/dL Calcium 8.2 L (8.7-10.3) mg/dL Stool Lactoferrin (NEGATIVE)
[2021-04-19] MEDS: LEVOFLOXACIN 750MG-D5W PMX 750 MG in DEXTROSE/WATER 1 150ML.BAG IVPB SCH (21:59)
[2021-04-20] MEDS: MORPHINE SULFATE 4 MG/ML SYRINGE IV PRN ×3 (05:26→14:22)
[2021-04-20] MEDS: metroNIDAZOLE-NS PMX 500 MG in SALINE 1 100ML.BAG IVPB SCH ×3 (05:26→18:20)
[2021-04-20 06:42] LABS: HCT 42.9 % (39.0-53.0); HGB 14.9 gm/dL (13.0-17.5); MCH 31.6 pg (25.0-35.0); MCHC 34.6 g/dL (31.0-37.0); MCV 91.2 fL (80.0-100.0); Mean Platelet Volume 8.1; Platelet Count 174 k/uL (150-450); RBC 4.71 m/uL (4.30-5.90); RDW 13.4 % (11.5-15.5); WBC 16.8 k/uL (3.8-10.6)
[2021-04-20 06:53] LABS: African American GFR (CKD) >90 (>60 ml/min/1.73 sqM); Anion Gap 8 mmol/L; Blood Urea Nitrogen 10 mg/dL (9-20); Carbon Dioxide 22 mmol/L (22-30); Chloride 102 mmol/L (98-107); Glucose 90 mg/dL (74-99); Non-African American GFR(CKD) >90 (>60 ml/min/1.73 sqM); Potassium 3.6 mmol/L (3.5-5.1); Sodium 132 mmol/L (137-145)
[2021-04-20] MEDS: HEPARIN SODIUM,PORCINE/PF 5,000 UNIT/0.5 ML SYRINGE SQ SCH ×2 (08:57→18:21)
[2021-04-20] MEDS: PANTOPRAZOLE 40 MG/10 ML VIAL IVP SCH ×2 (08:57→21:50)
[2021-04-20] MEDS: amLODIPine 5 MG TAB PO SCH (08:59)
[2021-04-20] MEDS: SODIUM CHLORIDE 0.9% 1,000 ML IV SCH ×2 (09:54→18:20)
[2021-04-20 10:09] LABS: Appearance,Urine Clear (Clear); Bilirubin,Urine Negative (Negative); Blood,Urine Negative (Negative); Color,Urine Yellow; Glucose,Urine (UA) Negative (Negative); Ketones,Urine 3+ (Negative); Leukocyte Esterase,Urine Trace (Negative); Mucus,Urine Rare /hpf; Nitrite,Urine Negative (Negative); Protein,Urine Trace (Negative); RBC,Urine <1 /hpf (0-5); Specific Gravity,Urine 1.025 (1.001-1.035); Urobilinogen,Urine <2.0 mg/dL (<2.0); WBC,Urine <1 /hpf (0-5)
--- NOTE | 2021-04-20 11:34 | PN ---
PROGRESS NOTE DATE OF SERVICE: April 20, 2021 Patient is a 46-year-old pleasant white male admitted to the hospital with severe acute onset of diarrhea with some rectal bleeding for the last 4-5 days duration. Because of clinical suspicion for acute infectious colitis, he was started on an empiric antibiotics with Levaquin and Flagyl. Today is day #3. His symptoms are gradually improving. Since midnight he only had 3 bowel movements so far. Small streaks of blood noted. Abdominal pain is improving. No nausea, no vomiting. No fever, chills, or night sweats. Stool cultures still pending. PHYSICAL EXAMINATION: He appears comfortable, in no apparent distress. Vital signs are stable. Blood pressure is 133/30 6 x 85, pulse rate 90, temperature 98.9. HEENT examination unremarkable. Conjunctivae pink. Sclerae anicteric. Oral cavity no lesions. Neck no JVD or lymph node enlargement. Chest was clear to auscultation. Heart: Regular rate and rhythm. Abdomen: Soft. There was mild diffuse tenderness mostly in the left lower quadrant and right lower quadrant area. Bowel sounds are positive. No organomegaly. Extremities: No pedal edema. Neuro: Alert and oriented x3. No focal deficits. LABS: Labs from today: WBC 16.8, hemoglobin 14.9, platelets 174. Basic metabolic panel is within normal limits. IMPRESSION: Acute onset of severe diarrhea for the last 4-5 days duration with some blood in the stool. Most likely we are dealing with acute infectious colitis, on empiric antibiotics. Stool cultures still pending. Doubt inflammatory bowel disease but possibility of IBD cannot be excluded entirely. RECOMMENDATIONS: 1. Will advance to a full liquid diet. 2. Continue with empiric antibiotics. 3. Await stool cultures. 4. If the symptoms do not significantly improve in the next 24-48 hours, we will consider colonoscopy to evaluate for inflammatory bowel disease. The plan was discussed with the patient. He is agreeable to it. Thank you for this consultation. MMODL / IJN: [id number] /
--- NOTE | 2021-04-20 15:19 | P.PN ---
Subjective Progress Note Date: 04/20/21 Principal diagnosis: chest pain Patient is a 46-year-old male with known past medical history who presented to the emergency room with abdominal pain, nausea, and diarrhea. He had initially presented on the morning of 04/[address] abdomen and pelvis which showed nonspecific colitis. He was discharged home on antibiotics and presented again several hours later due to intractable nausea vomiting and diarrhea with development of bright red blood per rectum. On admission his white blood cell count was 17.3 and he was found to be fairly hypertensive. He was started on Levaquin, Flagyl, and IV fluids. He is admitted for further monitoring. GI was consulted who felt this was likely infectious and recommended continuing antibiotics, colonoscopy in 6-8 weeks. C. diff was negative. Hemoglobin remained stable after admission had continued nausea and diarrhea. His diarrhea started on decreased on 04/20. Patient seen and examined at bedside. Having less frequent stooling and sometimes formed, no nausea today though has not eaten. Abdominal pain is getting better. He states he is continuing to have low urine output though is getting better. General: Ill appearing, no distress, appears at stated age Derm: warm, dry Head: atraumatic, normocephalic, symmetric Eyes: EOMI, no lid lag, anicteric sclera Mouth: no lip lesion, mucus membranes moist Cardiovascular: S1S2 reg, no murmur, positive posterior tibial pulse bilateral, Lungs: Decreased bs bilateral, no rhonchi, no rales , no accessory muscle use Abdominal: soft, tender to palpation right lower quadrant and left lower quadrant, no guarding, no appreciable organomegaly Ext: no gross muscle atrophy, no edema, no contractures Neuro: CN II-XI grossly intact, no focal neuro deficits Psych: Alert, oriented, appropriate affect Dysentery secondary to Colitis with inability to tolerate oral intake -GI recommendations appreciated: Outpatient colonoscopy in 6-8 weeks, ESR 3 -Levaquin, Flagyl -IV fluids -Advance to full liquid diet -Continue with PPI -Morphine -compazine Hyponatremia -Secondary to insensible water loss from diarrhea -Continue with IV fluids -Repeat in a.m. Hypertension - Appears to be essential as he has not followed with primary care and has had multiple elevated blood pressures -Norvasc -Follow blood pressures Patient aware he will need PCP on discharge for essential hypertension. Objective - Vital Signs Vital signs: Vital Signs Temp 98.8 F 07/31/21 11:55 Pulse 95 04/20/21 11:55 Resp 18 04/20/21 11:55 BP 145/88 04/20/21 11:55 Pulse Ox 94 L 04/20/21 11:55 Intake & Output 04/19/21 04/20/21 04/20/21 18:59 06:59 18:59 Intake Total 900 1690 Balance 900 1690 Intake: Intake, IV Titration 900 1100 Amount Levofloxacin 750Mg-D5w 150 Pmx 750 mg In Dextrose/ Water 1 150ml.bag @ 100 mls/hr IVPB Q24H MELINDA Rx#: [id number] Sodium Chloride 0.9% 1, 900 750 000 ml @ 75 mls/hr IV . [id number] MELINDA Rx#:[id number] metroNIDAZOLE-NS PMX 500 200 mg In Saline 1 100ml.bag @ 100 mls/hr IVPB Q6HR MELINDA Rx#:[id number] Oral 590 Other: Voiding Method Toilet Toilet Toilet # Voids 3 # Bowel Movements 1 - Labs CBC & Chem 7: 04/20/21 06:13 04/20/21 06:13 Labs: Abnormal Lab Results - Last 24 Hours (Table) 04/20/21 04/20/21 04/20/21 Range/Units 06:13 06:13 10:00 WBC 16.8 H (3.8-10.6) k/uL Sodium 132 L (137-145) mmol/L Creatinine 0.65 L (0.66-1.25) mg/dL Calcium 8.0 L (8.4-10.2) mg/dL Urine Protein Trace H (Negative) Urine Ketones 3+ H (Negative) Ur Leukocyte Esterase Trace H (Negative) Urine Mucus Rare H (None) /hpf
[2021-04-20] MEDS: HYDROcodone/APAP 5-325MG 1 EACH TAB PO PRN (19:47)
[2021-04-20] MEDS: LEVOFLOXACIN 750MG-D5W PMX 750 MG in DEXTROSE/WATER 1 150ML.BAG IVPB SCH (21:50)
[2021-04-21] MEDS: HEPARIN SODIUM,PORCINE/PF 5,000 UNIT/0.5 ML SYRINGE SQ SCH ×3 (00:18→17:08)
[2021-04-21] MEDS: MORPHINE SULFATE 4 MG/ML SYRINGE IV PRN ×4 (00:18→22:34)
[2021-04-21] MEDS: metroNIDAZOLE-NS PMX 500 MG in SALINE 1 100ML.BAG IVPB SCH ×4 (00:22→17:08)
[2021-04-21] MEDS: SODIUM CHLORIDE 0.9% 1,000 ML IV SCH ×2 (05:59→15:50)
[2021-04-21 06:13] LABS: HCT 41.5 % (39.0-53.0); HGB 14.6 gm/dL (13.0-17.5); MCH 31.8 pg (25.0-35.0); MCHC 35.1 g/dL (31.0-37.0); MCV 90.5 fL (80.0-100.0); Mean Platelet Volume 8.5; Platelet Count 210 k/uL (150-450); RBC 4.59 m/uL (4.30-5.90)
[2021-04-21 06:24] LABS: African American GFR (CKD) >90 (>60 ml/min/1.73 sqM); Anion Gap 7 mmol/L; Blood Urea Nitrogen 11 mg/dL (9-20); Calcium 7.7 mg/dL (8.4-10.2); Carbon Dioxide 22 mmol/L (22-30); Chloride 103 mmol/L (98-107); Glucose 81 mg/dL (74-99); Non-African American GFR(CKD) >90 (>60 ml/min/1.73 sqM); Potassium 3.5 mmol/L (3.5-5.1); Sodium 132 mmol/L (137-145)
[2021-04-21] MEDS: amLODIPine 5 MG TAB PO SCH (08:55)
[2021-04-21] MEDS: PANTOPRAZOLE 40 MG/10 ML VIAL IVP SCH ×2 (08:55→21:31)
[2021-04-21 12:00] VITALS: RESP 18
--- NOTE | 2021-04-21 12:19 | PN ---
PROGRESS NOTE DATE OF SERVICE: 04/21/2021. HISTORY: The patient is a 46-year-old pleasant white male admitted to the hospital 3 days ago when he presented with severe lower abdominal pain with bloody diarrhea of 2 days duration. He was started on empiric antibiotics for possible acute infectious colitis. Stool cultures still pending. The patient remains on Flagyl and Levaquin, day #4. He is feeling much better. He only had 7 bowel movements in the last 24 hours period with no bleeding. Still has some abdominal pain but IV pain medications have been discontinued and presently receiving oral pain medications. He remains on a full liquid diet, tolerating well. No nausea, no vomiting. No fever, chills, or night sweats. PHYSICAL EXAMINATION: VITAL SIGNS: Blood pressure 135/86, pulse rate 95, temperature 98.4. HEENT: Unremarkable. Conjunctiva pink. Sclerae anicteric. Oral cavity no lesions. NECK: No JVD or lymph node enlargement. CHEST: Clear to auscultation. HEART: Regular rate and rhythm. ABDOMEN: Soft. There was mild tenderness in the left lower quadrant area. Rest of the abdomen was soft. Bowel sounds are positive. No organomegaly. EXTREMITIES: No pedal edema. NEUROLOGIC: He is alert and oriented x3. No focal deficits. LABS: WBC 15, hemoglobin 14, platelets normal. Sodium 132. Rest of the labs are all within normal limits. IMPRESSION: 1. Acute onset of severe bloody diarrhea of 4-5 days duration most likely infectious etiology. Patient on empiric antibiotics with Flagyl and Levaquin, day #4, and his symptoms are gradually improving. Stool cultures are still pending. C difficile toxin is negative. Lactoferrin is positive. 2. Mild leukocytosis secondary to acute infectious colitis. RECOMMENDATIONS: I had a lengthy discussion with the patient regarding further management. At this time since he is gradually improving. We will continue with empiric antibiotics with Levaquin and Flagyl. I did mention to the patient who if his symptoms do not completely resolve in the next 24-48 hours, we may have to consider a colonoscopy for possible the study evaluate for possible inflammatory bowel disease. The clinical position presentation appears atypical for this condition for this condition. For now, I advised to increase ambulation and gradually advance diet as tolerated. We will follow with you closely. Thank you for this consultation. MMODL / IJN: [id number] /
--- NOTE | 2021-04-21 14:40 | P.PN ---
Subjective Progress Note Date: 04/21/21 Principal diagnosis: chest pain Patient is a 46-year-old male with known past medical history who presented to the emergency room with abdominal pain, nausea, and diarrhea. He had initially presented on the morning of 04/[address] abdomen and pelvis which showed nonspecific colitis. He was discharged home on antibiotics and presented again several hours later due to intractable nausea vomiting and diarrhea with development of bright red blood per rectum. On admission his white blood cell count was 17.3 and he was found to be fairly hypertensive. He was started on Levaquin, Flagyl, and IV fluids. He is admitted for further monitoring. GI was consulted who felt this was likely infectious and recommended continuing antibiotics, colonoscopy in 6-8 weeks. C. diff was negative. Hemoglobin remained stable after admission had continued nausea and diarrhea. His diarrhea started on decreased on 04/20. Patient seen and examined at bedside. Only had 5-7 bowel movements yesterday, no more blood, abdominal pain is getting better. No chest pain or shortness of breath. He tolerated full liquid diet. General: Ill appearing, no distress, appears at stated age Derm: warm, dry Head: atraumatic, normocephalic, symmetric Eyes: EOMI, no lid lag, anicteric sclera Mouth: no lip lesion, mucus membranes moist Cardiovascular: S1S2 reg, no murmur, positive posterior tibial pulse bilateral, Lungs: Decreased bs bilateral, no rhonchi, no rales , no accessory muscle use Abdominal: soft, tender to palpation suprapubic, no guarding, no appreciable organomegaly Ext: no gross muscle atrophy, no edema, no contractures Neuro: CN II-XI grossly intact, no focal neuro deficits Psych: Alert, oriented, appropriate affect Dysentery secondary to Colitis with inability to tolerate oral intake -GI recommendations appreciated: Outpatient colonoscopy in 6-8 weeks, ESR 3 -Levaquin, Flagyl -IV fluids - full liquid diet -Continue with PPI -Morphine -compazine Hyponatremia -Secondary to insensible water loss from diarrhea -Continue with IV fluids -Repeat in a.m. Hypertension - Appears to be essential as he has not followed with primary care and has had multiple elevated blood pressures -Norvasc -Follow blood pressures Patient aware he will need PCP on discharge for essential hypertension. Objective - Vital Signs Vital signs: Vital Signs Temp 98.9 F 04/21/21 11:17 Pulse 87 04/21/21 11:17 Resp 18 04/21/21 11:17 BP 129/79 04/21/21 11:17 Pulse Ox 94 L 04/21/21 11:17 Intake & Output 04/20/21 04/21/21 04/21/21 18:59 06:59 18:59 Intake Total 950 2160 Balance 950 2160 Intake: Intake, IV Titration 950 1200 Amount Levofloxacin 750Mg-D5w 100 Pmx 750 mg In Dextrose/ Water 1 150ml.bag @ 100 mls/hr IVPB Q24H MELINDA Rx#: [id number] Sodium Chloride 0.9% 1, 750 900 000 ml @ 75 mls/hr IV . [id number] MELINDA Rx#:[id number] metroNIDAZOLE-NS PMX 500 200 200 mg In Saline 1 100ml.bag @ 100 mls/hr IVPB Q6HR MELINDA Rx#:[id number] Oral 960 Other: Voiding Method Toilet Toilet # Voids 3 # Bowel Movements 2 - Labs CBC & Chem 7: 04/21/21 05:55 04/21/21 05:55 Labs: Abnormal Lab Results - Last 24 Hours (Table) 04/21/21 04/21/21 Range/Units 05:55 05:55 WBC 15.0 H (3.8-10.6) k/uL Sodium 132 L (137-145) mmol/L Creatinine 0.64 L (0.66-1.25) mg/dL Calcium 7.7 L (8.4-10.2) mg/dL
[2021-04-21] MEDS: LEVOFLOXACIN 750MG-D5W PMX 750 MG in DEXTROSE/WATER 1 150ML.BAG IVPB SCH (22:22)
[2021-04-21 22:28] VITALS: TEMP 98.2
[2021-04-22] MEDS: HEPARIN SODIUM,PORCINE/PF 5,000 UNIT/0.5 ML SYRINGE SQ SCH ×2 (00:52→08:03)
[2021-04-22] MEDS: metroNIDAZOLE-NS PMX 500 MG in SALINE 1 100ML.BAG IVPB SCH ×2 (00:53→06:08)
[2021-04-22] MEDS: HYDROcodone/APAP 5-325MG 1 EACH TAB PO PRN (04:17)
[2021-04-22 05:29] LABS: HCT 41.2 % (39.0-53.0); HGB 14.9 gm/dL (13.0-17.5); MCHC 36.1 g/dL (31.0-37.0); MCV 91.5 fL (80.0-100.0); Mean Platelet Volume 7.8; Platelet Count 237 k/uL (150-450); RBC 4.51 m/uL (4.30-5.90); RDW 13.6 % (11.5-15.5); WBC 13.2 k/uL (3.8-10.6)
[2021-04-22 05:36] LABS: African American GFR (CKD) >90 (>60 ml/min/1.73 sqM); Anion Gap 7 mmol/L; Blood Urea Nitrogen 9 mg/dL (9-20); Carbon Dioxide 23 mmol/L (22-30); Chloride 103 mmol/L (98-107); Glucose 91 mg/dL (74-99); Non-African American GFR(CKD) >90 (>60 ml/min/1.73 sqM); Potassium 3.5 mmol/L (3.5-5.1); Sodium 133 mmol/L (137-145)
[2021-04-22 05:39] VITALS: BP 141/87; PULSE 86
[2021-04-22] MEDS: amLODIPine 5 MG TAB PO SCH (08:03)
[2021-04-22] MEDS: SODIUM CHLORIDE 0.9% 1,000 ML IV SCH (08:04)
[2021-04-22] MEDS: PANTOPRAZOLE 40 MG/10 ML VIAL IVP SCH (08:04)
--- NOTE | 2021-04-22 14:02 | P.DS ---
Providers Date of admission: 04/17/21 21:28 Expected date of discharge: 04/22/21 Attending physician: Laverne Obando MD Consults: 04/17/21 22:07 Consult Physician Routine Consulting Provider: Dea Mata Consult Reason/Comments: GI bleed; Colitis Do you want consulting provider notified?: Yes Primary care physician: Stated None Hospital Course: Discharge Diagnosis: Dysentery with acute infectious colitis Hyponatremia Hypertension, new diagnosis. Hospital Course: Patient is a 46-year-old male with known past medical history who presented to the emergency room with abdominal pain, nausea, and diarrhea. He had initially presented on the morning of 04/[address] abdomen and pelvis which showed nonspecific colitis. He was discharged home on antibiotics and presented again several hours later due to intractable nausea vomiting and diarrhea with development of bright red blood per rectum. On admission his white blood cell count was 17.3 and he was found to be fairly hypertensive. He was started on Levaquin, Flagyl, and IV fluids. He is admitted for further monitoring. GI was consulted who felt this was likely infectious and recommended continuing antibiotics, colonoscopy in 6-8 weeks. C. diff was negative. Hemoglobin remained stable after admission had continued nausea and diarrhea. His diarrhea started on decreased on 04/20. He was able to tolerate a full liquid diet. His diarrhea had resolved. On the morning of 04/22 he noted some swelling in his right upper extremity. His IV site. It appeared that he had some IV associated edema, no erythema, no warmth noted suspect the IV infiltrated. He had only 2 bowel movements the day prior and he was determined stable for discharge home. Follow-up: Patient to establish care with Dr. العلي, patient to follow-up with Dr. Hernandes in 4-6 weeks regarding colonoscopy. Completion of a 10 day course of Levaquin and Flagyl. [place] as needed for pain. Advance diet as tolerated. Patient seen and examined at bedside. Upset and angry about the swelling in his right arm and feels as though we are not doing her best to take care of him. 2 bowel movements today. Abdominal pain much improved. Tolerated diet. States he initially wanted one more day in the hospital but decided against it secondary to his arm swelling. Vital signs reviewed and stable. General: non toxic, no distress, appears at stated age Derm: Right antecubital area with swelling no warmth, no erythema, appears at IV infiltrated. warm, dry Head: atraumatic, normocephalic, symmetric Eyes: EOMI, no lid lag, anicteric sclera Mouth: no lip lesion, mucus membranes moist Cardiovascular: S1S2 reg, no murmur, positive posterior tibial pulse bilateral, Lungs: CTA bilateral, no rhonchi, no rales , no accessory muscle use Abdominal: soft, minimal tender to palpation suprapubic, no guarding, no appreciable organomegaly Ext: no gross muscle atrophy, no edema, no contractures Neuro: CN II-XI grossly intact, no focal neuro deficits Psych: Alert, oriented, appropriate affect A total of 37 minutes of time were spent preparing this complex discharge [place] . Patient Condition at Discharge: Stable Plan - Discharge Summary Discharge Rx Participant: No New Discharge Prescriptions: New metroNIDAZOLE [Flagyl] 500 mg PO TID #17 tab Levofloxacin [Levaquin] 750 mg PO HS #5 tab amLODIPine [Norvasc] 5 mg PO DAILY #5 tab HYDROcodone/APAP 5-325MG [[place] 5-325] 1 each PO Q6HR PRN #24 tab PRN Reason: Pain Discharge Medication List HYDROcodone/APAP 5-325MG [[place] 5-325] 1 each PO Q6HR PRN #24 tab 04/22/21 [Rx] Levofloxacin [Levaquin] 750 mg PO HS #5 tab 04/22/21 [Rx] amLODIPine [Norvasc] 5 mg PO DAILY #5 tab 04/22/21 [Rx] metroNIDAZOLE [Flagyl] 500 mg PO TID #17 tab 04/22/21 [Rx] Follow up Appointment(s)/Referral(s): Rajan Ness MD [REFERRING] - 04/25/21 10:00 am Dea Mata MD [STAFF PHYSICIAN] - 05/14/21 3:00 pm Patient Instructions/Handouts: Hydrocodone/Acetaminophen (By mouth), Metronidazole (By mouth), Amlodipine (By mouth), Levofloxacin (By mouth), Gastrointestinal Bleeding (DC), Diet for Stomach Ulcers and Gastritis (ED), Acute Diarrhea (ED), Colitis (ED) Activity/Diet/Wound Care/Special Instructions: Activity: as tolerated Diet: soft bland Wound Care: keep moving right arm to help mobilize fluid Special Instructions: no driving or operating heave machinery with hydrocodone/acetaminophen Return to work 04/29/21 Discharge/Stand Alone Forms: Work/Release Restrictions Form Discharge Disposition: HOME SELF-CARE
[2021-04-22] MEDS ORDERED: LEVOFLOXACIN 750 MG TAB PO SCH (21:00)
--- NOTE | 2021-04-23 16:07 | CDI ---
Documentation Clarification Form Date: 04/23/21 From: RC Bains Admit Date: 04/17/2021 09:28:00 PM Patient Name: Greg Coronado Visit Number: [id number] Discharge Date: 04/22/2021 09:15:00 AM ATTENTION: The Clinical Documentation Specialists (CDI) and [facility] Coding Staff appreciate your assistance in clarifying documentation. Please respond to the clarification below the line at the bottom and electronically sign. The CDI & [facility] Coding staff will review the response and follow-up if needed. Please note: Queries are made part of the Legal Health Record. If you have any questions, please contact the author of this message via ITS. Dr. Laverne Obando The patient presented with the following clinical indicators. Additional clarification regarding the etiology/cause of the clinical indicators is requested. History/Risk Factors: Patient presented on the morning of 04/17 with lower abdominal pain, vomiting, GI bleed and diarrhea. He underwent a CT of the abdomen and pelvis which showed nonspecific colitis. Clinical Indicators: WBC: 17.3 Vitals signs: T 99.0, BP 180/125, Pulse 86, Resp Rate 17 Treatment: Levaquin, Flagyl, IV fluids, Morphine Progress Notes from 04/18 and 04/19: "Patient has failed observational stay with continued inability to tolerate oral intake, continued elevated white blood cell count with some tachycardia indicative of developing sepsis, and intractable abdominal pain." Medical - Consult Note: "Likely we are dealing with an infectious etiology as patient has a low-grade fever with a max temp 99.3 and leukocytosis however other possible etiologies need to be considered such as inflammatory." In your professional opinion, please clarify if these findings signify one of the following conditions: [ ] Sepsis [ ] Sepsis ruled out [ ] SIRS, without underlying infectious process [ ] Other, please specify [ ] Unable to determine SIRS Criteria: 2 or more of the following may indicate SIRS -Temperature < 96.8F (36C) or > 101.0F (38.3C) -Heart Rate > 90 bpm -Respiratory Rate > 20 breaths/min or PaCO2 < 32 mmHg -White Blood Cell Count > 12,000 or < 4,000 cells/mm3 or > 10% bands MTDD
== END 2021-04-22 09:15 | disposition home or self-care (01) | DRG 872 ==
LOC: EC 19:33 → 5NMEDONC 21:28 → OBSVTOIN 21:28 → 5NMEDONC 23:21
PROVIDERS: ADMIT Internal Medicine; ATTEND Internal Medicine
DX: A41.9 Sepsis, unspecified organism (principal); A09 Infectious gastroenteritis and colitis, unspecified; E87.1 Hypo-osmolality and hyponatremia; I10 Essential (primary) hypertension; Z82.49 Family history of ischemic heart disease and other diseases of the circulatory system
CPT/HCPCS: 36415; 80048; 80053; 81001; 83630; 83690; 83735; 85025; 85027; 85652; 86140; 87045; 87046; 87324; 87493; 96361; 96374; 96375; 99285